=== PATIENT | male | born 1990 | race Caucasian/White ===

== ENCOUNTER → 2021-02-28 | Day surgery (SDC) | payer OTHER ==
[2021-02-28 08:53] LABS: HCT 47.2 % (42.0-52.0); HGB 16.4 g/dl (13.2-18.0); MCH 31.7 pg (25.0-31.0); MCHC 34.7 g/dL (32.0-36.0); MCV 91.1 fL (78.0-100.0); MPV 10.5 fL (6.0-9.5); RBC 5.18 M/uL (4.70-6.00); RDW 12.9 % (11.5-14.0); WBC 6.7 K/uL (4.0-10.5)
[2021-02-28 09:11] LABS: BILIRUBIN - TOTAL 0.7 mg/dL (0.2-1.0); BUN/CREAT RATIO (CALC) 11.7 RATIO; CREATININE 0.94 mg/dL (0.67-1.17); GLOBULIN (CALCULATION) 4.2 g/dL; POTASSIUM 4.4 mmol/L (3.5-5.1); TOTAL PROTEIN 8.2 g/dL (6.4-8.2)
== END | disposition home or self-care (01) ==
LOC: FAS 08:20
PROVIDERS: Surgery
DX: K58.9 Irritable bowel syndrome, unspecified (principal); Z88.1 Allergy status to other antibiotic agents; Z88.2 Allergy status to sulfonamides; Z90.49 Acquired absence of other specified parts of digestive tract; Z80.0 Family history of malignant neoplasm of digestive organs; Z82.49 Family history of ischemic heart disease and other diseases of the circulatory system; Z86.16 Personal history of COVID-19
CPT/HCPCS: 36415; 80053; J2250; J2704; J7120